=== PATIENT | female | born 1935 | race Caucasian/White ===

== ENCOUNTER → 2020-06-13 | Outpatient (CLI) | payer MEDICARE, BC ==
--- NOTE | 2020-06-13 08:45 | RAD ---
Bilateral renal ultrasound without comparison for abnormal kidney function. TECHNIQUE AND FINDINGS: Real-time grayscale and color Doppler evaluation of the kidneys and urinary bladder is performed. The aorta is nonaneurysmal. There is mild atherosclerosis. The IVC is patent. The right kidney measures 8.3 x 4.3 x 3.3 cm and the left measures 9.4 x 4.3 x 5.6 cm. There is no hydronephrosis or perinephric fluid around either kidney. Both kidneys demonstrate normal color Doppler flow. There are 2 simple cysts on the left for which no additional follow-up is required. On the right there is 1.7 x 1.4 x 1.4 cm cyst which is poorly characterized today, with some margins not well delineated, and a possible echogenic focus along one area perhaps representing calcification. Consequently this cyst is equivocal. Follow-up renal ultrasound in 3-6 months or more definitive characterization with three-phase CT scan or MRI of the abdomen should be considered. The urinary bladder is only partially fluid distended but is unremarkable. Ureteral jets were not identified. IMPRESSION: 1. Equivocal right renal cyst measuring 1.7 cm. This is incompletely characterized on the current exam. Follow-up renal ultrasound in 3-6 months for more definitive characterization with three-phase CT scan or MRI of the abdomen should be considered. 2. No other sonographically discernible abnormalities of the kidneys or urinary bladder. Electronically signed by: Juan M Hedrick MD (06/13/2020 8:42 AM) [id number]
== END | disposition home or self-care (01) ==
LOC: US 07:42
PROVIDERS: ATTEND Family Medicine
DX: N28.1 Cyst of kidney, acquired (principal)
CPT/HCPCS: 76770